=== PATIENT | male | born 1965 | race Caucasian/White ===

== ENCOUNTER 2020-09-19 15:31 | Inpatient (IN) | payer OTHER, MEDICAID ==
[~2020-09-19] VITALS: Ht 162.6 cm; Wt 72.6 kg
[~2020-09-19 15:31] MED LIST: ACET-1182 PO; ACET-9531 PO; ALBU0.0912 INH; ATOR20TA40 PO; AZIT250T11 PO; DOCU-299 PO; HEPA-133 IV; HEPA500056 IV; Heparin Per Pharmacy MC; LAS20I IVP; LISI20TA29 PO; LISI20TA30 PO; METO25TA PO; ONDA2SOL45 IM/IVP; POTA10TE30 PO
[2020-09-19 15:59] VITALS: BP 109/78
--- NOTE | 2020-09-19 16:32 | NUR ---
pt ambulated to bed 10.
--- NOTE | 2020-09-19 16:43 | NUR ---
PT TAKEN TO CT VIA W/C
--- NOTE | 2020-09-19 16:46 | NUR ---
55 Y/O M BIB SELF FROM HOME, C/O MOTTLED SKIN, DIARRHEA, N&V FOR ONE WEEK. PT OVERALL STATES HE IS NOT FEELING WELL AND HAVING FREQUENT DIZZY SPELLS. DENIES SYNCOPE. DENIES LOC, FALL OR HEAD INJURY. DENIES ANY PAIN AT THIS TIME. PMH: DEAF, PACEMAKER, HEART BLOCK NKA
--- NOTE | 2020-09-19 16:53 | NUR ---
PT RETURNED TO BEDSIDE FROM CT VIA W/C
--- NOTE | 2020-09-19 16:53 | NUR ---
UA COLLECTED AND GIVEN TO TOMBSTONE POLISHER
--- NOTE | 2020-09-19 16:55 | NUR ---
PT PLACED ON AEROSPACE MANAGER AND PULSE OX
--- NOTE | 2020-09-19 16:57 | NUR ---
QUARTER FOLDER BEDSIDE
--- NOTE | 2020-09-19 17:06 | NUR ---
RT BEDSIDE COLLECTING ABG BLOODWORK
[2020-09-19 17:31] LABS: BASOPHILS % (AUTO) 0.4 % (0.0-2.0); EOSINOPHILS # (AUTO) 0.1 K/uL (0-0.4); EOSINOPHILS % (AUTO) 1.5 % (0.0-4.0); HEMATOCRIT 24.6 % (36-52); HEMOGLOBIN 12.7 g/dL (12.0-18.0); LYMPHOCYTES # (AUTO) 1.8 K/uL (2.0-11.5); LYMPHOCYTES % (AUTO) 23.6 % (20.5-51.1); MEAN CORPUSCULAR HEMOGLOBIN 54 pg (27-31); MEAN CORPUSCULAR HGB CONC 52 g/dL (33-37); MEAN CORPUSCULAR VOLUME 103.8 fL (80-94); MONOCYTES # (AUTO) 0.6 K/uL (0.8-1.0); MONOCYTES % (AUTO) 7.8 % (1.7-9.3); NEUTROPHILS % (AUTO) 66.7 % (42.2-75.2); PLATELET COUNT (AUTO) 275 K/uL (140-450); RED BLOOD CELL COUNT(AUTO) 2.37 MIL/uL (4.20-6.10); RED CELL DISTRIBUTION WIDTH 12.1 % (11.6-13.7); WHITE BLOOD COUNT (AUTO) 7.5 K/uL (4.8-10.8)
--- NOTE | 2020-09-19 17:36 | NUR ---
Pt resting, visible equal rise and fall of chest, VSS, will continue to monitor. EMT provided warm blanket at this time.
[2020-09-19 17:47] LABS: BILIRUBIN,URINE NEGATIVE (NEGATIVE); BLOOD, URINE TRACE-L (NEGATIVE); COLOR,URINE YELLOW (YELLOW); LEUKOCYTE ESTERASE ,URINE NEGATIVE (NEGATIVE); NITRITE, URINE NEGATIVE (NEGATIVE); PH,URINE 5.5 (5.0-9.0); UGLUCOSE NEGATIVE (NEGATIVE)
[2020-09-19 17:51] LABS: ALBUMIN 4.1 g/dL (3.4-5.0); ANION GAP 11.5 (8-16); ASPARTATE AMINOTRANSFERASE 33 U/L (15-37); CARBON DIOXIDE 28.3 mmol/L (21-32); CHLORIDE 103 mmol/L (98-107); GFR ARICAN-AMERICAN 99 mL/min (>90); GLUCOSE 101 mg/dL (74-106); POTASSIUM 3.8 mmol/L (3.5-5.1); SODIUM SERUM 139 mmol/L (136-145); TOTAL BILIRUBIN 1.3 mg/dL (0.0-1.0); UREA NITROGEN, BLOOD 11 mg/dL (7-18)
[2020-09-19 17:53] LABS: APPEARANCE,URINE CLEAR (CLEAR)
[2020-09-19 17:54] LABS: ACETAMINOPHEN < 0.5 ug/ml (10-30); SALICYLATE < 2.8 mg/dL (2.8-20.0)
[2020-09-19 18:07] LABS: BARBITURATE, URINE NEGATIVE ng/ml (NEG <=200); BENZODIAZEPINE, URINE NEGATIVE ng/mL (NEG <=200); COCAINE, URINE NEGATIVE ng/mL (NEG <=300)
[2020-09-19 18:08] LABS: CANNABINOID, URINE POSITIVE ng/mL (NEG <=50); OPIATE, URINE NEGATIVE ng/mL (NEG <=2000); PHENCYCLIDINE SCREEN,URINE NEGATIVE ng/mL (NEG <=25)
--- NOTE | 2020-09-19 18:53 | NUR ---
[facility] crayon molding machine operator services used for pending pt admission. [place] #[id number]. Dr. Keyes at pt bedside.
--- NOTE | 2020-09-19 18:56 | NUR ---
Pt ambulated to restroom with a steady gait.
--- NOTE | 2020-09-19 19:03 | NUR ---
Spoke with dietary for vegetarian diet request per pt and Dr. Keyes.
--- NOTE | 2020-09-19 19:14 | NUR ---
REPORT GIVEN TO DONTRELL PRIETO. TRANSFER OF CARE GIVEN
--- NOTE | 2020-09-19 19:22 | NUR ---
Report received from Greta JON for continuity of care.
--- NOTE | 2020-09-19 20:59 | NUR ---
PATIENT AMBUALTED TO BED 11.
[2020-09-19] MEDS ORDERED: SODIUM PHOS / POTASSIUM PHOS 1 PKT PDR PO PRN (22:20)
[2020-09-19] MEDS ORDERED: HYDROcodone/APAP 5/325 MG 1 TAB TAB PO PRN (22:20)
[2020-09-19] MEDS ORDERED: MAG SULF 2000 MG/WATER PREMIX 50 ML IV PRN (22:20)
[2020-09-19] MEDS ORDERED: ALBUTEROL HFA MDI 90 MCG/ACTUATION 8 GM INH PRN (22:20)
[2020-09-19] MEDS ORDERED: MORPHINE SULFATE 2 MG/ML SYR IVP PRN (22:20)
[2020-09-19] MEDS ORDERED: ACETAMINOPHEN 325 MG TAB PO PRN (22:20)
[2020-09-19] MEDS: NACL 0.9% 1,000 ML IV SCH (22:20)
[2020-09-19] MEDS ORDERED: DOCUSATE SODIUM 100 MG GELCAP PO PRN (22:20)
[2020-09-19] MEDS ORDERED: ONDANSETRON 4 MG/2 ML VIAL IM/IVP PRN (22:20)
[2020-09-19] MEDS ORDERED: POTASSIUM CHLORIDE 40 MEQ, LIDOCAINE MPF 1% 25 MG in NACL 0.9% 250 ML IV PRN (22:20)
[2020-09-19] MEDS ORDERED: MECLIZINE 25 MG TAB PO PRN (22:35)
--- NOTE | 2020-09-20 | NUR ---
PATIENT IN BED, AWAKE, ABLE TO VERBALIZE NEEDS. VS WNL. DENIES HAVING ANY PAIN AND DISCOMFORT. WILL CONTINUE TO MONITOR.
[2020-09-20 01:12] LABS: MAGNESIUM 2.1 mg/dL (1.8-2.4)
--- NOTE | 2020-09-20 04:15 | NUR ---
PT SLEEPING. REFUSED VS AT THIS TIME.
--- NOTE | 2020-09-20 06:10 | NUR ---
COLLECTED AM LAB ORDERS. PT APPEARS COMFORTABLE AND IN NO DISTRESS.
[2020-09-20] MEDS ORDERED: LOSA25TA43 PO (06:55)
[2020-09-20 07:05] LABS: BASOPHILS # (AUTO) 0.1 K/uL (0.00-0.22); BASOPHILS % (AUTO) 0.7 % (0.0-2.0); EOSINOPHILS # (AUTO) 0.1 K/uL (0-0.4); EOSINOPHILS % (AUTO) 1.3 % (0.0-4.0); HEMOGLOBIN 11.3 g/dL (12.0-18.0); LYMPHOCYTES # (AUTO) 2.5 K/uL (2.0-11.5); LYMPHOCYTES % (AUTO) 25.7 % (20.5-51.1); MEAN CORPUSCULAR HEMOGLOBIN 61 pg (27-31); MEAN CORPUSCULAR HGB CONC 60 g/dL (33-37); MEAN CORPUSCULAR VOLUME 102.4 fL (80-94); MONOCYTES # (AUTO) 0.8 K/uL (0.8-1.0); MONOCYTES % (AUTO) 7.9 % (1.7-9.3); NEUTROPHILS # (AUTO) 6.3 K/uL (1.8-7.7); NEUTROPHILS % (AUTO) 64.4 % (42.2-75.2); PLATELET COUNT (AUTO) 225 K/uL (140-450); RED BLOOD CELL COUNT(AUTO) 1.85 MIL/uL (4.20-6.10); RED CELL DISTRIBUTION WIDTH 12.1 % (11.6-13.7); WHITE BLOOD COUNT (AUTO) 9.7 K/uL (4.8-10.8)
--- NOTE | 2020-09-20 07:13 | NUR ---
REPORT GIVEN TO TORRES JON FOR CONTINUITY OF CARE.
--- NOTE | 2020-09-20 07:23 | NUR ---
Patient resting at this time in a position of comfort, placed on bedside rn cardiac cath.
[2020-09-20 07:39] LABS: ANION GAP 10.6 (8-16); CARBON DIOXIDE 26.1 mmol/L (21-32); CREATININE 0.9 mg/dL (0.6-1.3); POTASSIUM 4.7 mmol/L (3.5-5.1)
--- NOTE | 2020-09-20 07:42 | NUR ---
RECEIVED REPORT FROM ER NURSE PT IS AAOX4 ON ROOM AIR, AMBULATORY ON CARDIAC DIET IV ON THE LEFT ARM GAUGE 20 SKIN INTACT, COVID 19 VACCINE DONE PT IS FULLY VACCINATED WITH [employer] VACCINE. CHEST XRAY DONE WITH LEFT SIDED PACEMAKER/DEFIB IN PLACE NEGATIVE FOR CARDIOPULMONARY DISEASE AND HEAD CT DONE NEGATIVE BLEEDING MIDLINE SHIFT OR MASS EFFECT, PT IS HARD OF HEARING.
--- NOTE | 2020-09-20 07:43 | NUR ---
Patient will be admitted to care of Dr. Veronica. Admited to Med/Surg. Will go to room 111A. Belongings list completed. Report to Tanya.
--- NOTE | 2020-09-20 08:00 | NUR ---
RECEIVED PT FROM ED. CALL LIGHT IS WITHIN REACH. SAFETY PRECAUTIONS IN PLACE. WILL CONTINUE PLAN OF CARE.
--- NOTE | 2020-09-20 08:13 | NUR ---
MRSA TEST WAS TAKEN TO LAB.
[2020-09-20] MEDS: METOPROLOL 25 MG TAB PO SCH ×2 (08:53→20:40)
--- NOTE | 2020-09-20 08:55 | NUR ---
ADMINISTERED SCHEDULED MEDICATIONS LISINOPRIL AND METROPOLOL. BP WAS 121/85 OH:79. PT REFUSED HEPARIN DUE TO HIM NOT TAKING IT AT HOME. SAFETY PRECAUTIONS IN PLACE PER PROTOCOL. PT IS EATING BREAKFAST AND APPEARS STABLE. CALL LIGHT IS IN REACH. WILL CONTINUE TO MONITOR.
[2020-09-20] MEDS ORDERED: lisinopriL 20 MG TAB PO SCH (09:00)
--- NOTE | 2020-09-20 09:01 | NUR ---
PT PUT ON FALL PREVENTIONS. YELLOW GOWN , YELLOW NON SKID SOCKS, YELLOW FALL PRECAUTIONS BRACELET, AND FIBERGLASS INSULATION INSTALLER SIGN OUTSIDE OF ROOM. CALL LIGHT IS WITHIN REACH. SAFETY PRECAUTIONS IN PLACE. WILL CONTINUE TO MONITOR.
[2020-09-20 09:57] VITALS: BP 124/83
--- NOTE | 2020-09-20 10:44 | NUR ---
PATIENT HAS BEEN SCREENED AND CATEGORIZED MODERATE NUTRITION RISK. PATIENT WILL BE SEEN WITHIN 3-5 DAYS OF ADMISSION. 09/22/20-09/24/20 OC BARCLAY MS, RDN
--- NOTE | 2020-09-20 12:32 | NUR ---
CALLED DR KATHY ALFARO FOR A CONSULT, IS OFF FOR TODAY LEFT MESSAGE TO LYLY. Addendum: 09/20/20 at 1236 by Tanya Suh RN DR MARLYN NICHOLS
--- NOTE | 2020-09-20 14:00 | NUR ---
MADE ROUNDS PT IS RESTING AND NO DISTRESS NOTED.
--- NOTE | 2020-09-20 15:00 | NUR ---
PATIENTS MOM CALLED AND AND GAVE UPDATES ON PATIENT CONDITION.
[2020-09-20 16:00] VITALS: BP 106/68
[2020-09-20] MEDS ORDERED: MECLIZINE 25 MG TAB PO PRN (17:05)
--- NOTE | 2020-09-20 17:37 | NUR ---
US VENOUS BILATERAL LOWER EXTREMITIES ON GOING AT THIS TIME. WILL CONTINUE TO MONITOR.
--- NOTE | 2020-09-20 18:08 | NUR ---
EDUCATED PT ON LAB RESULTS A DTHE IMPORTANCE OF TAKING HEPARIN. PT AGREED TO BE COMPLIANT WITH MEDICATION REGIMEN AND PLAN OF CARE. CALL LIGHT IS WITHIN REACH. WILL CONTINUE TO MONITOR.
--- NOTE | 2020-09-20 19:26 | NUR ---
ENDORSED TO NIGHT NURSE FOR CONTINUITY OF CARE. PT IS STABLE.
--- NOTE | 2020-09-20 19:27 | NUR ---
RECD. RESTING IN BED, AWAKE, A/OX4. HARD OF HEARING, USES PAPER FOR COMMUNICATION WITH THE NURSE. RESPIRATION EVEN AND UNLABORED. IV OF NS AT 40 ML/HR INFUSING, LEFT FOREARM G20. AMBULATORY TO THE BR. NOTED RASHES ON BILATERAL UPPER EXTREMITIES AND LOWER EXTREMITIES AND SOME AT THE BACK. MEDICATIONS FOR THE NIGHT DISCUSSED WITH PATIENT, VERBALIZED UNDERSTANDING. DENIES PAIN 0/10.
[2020-09-20 20:00] VITALS: BP 117/79
[2020-09-20] MEDS: ATORVASTATIN 20 MG TAB PO SCH (20:40)
--- NOTE | 2020-09-20 20:40 | NUR ---
SCHEDULED MEDICATIONS GIVEN FOR THE NIGHT. REFUSED COZAAR, STATED THAT HE GARCIA NOT TAKE IT AT HOME BUT TAKE ALL OTHER MEDICATIONS. EXPLAINED IT'S IMPORTANCE, STILL REFUSED.
[2020-09-20] MEDS: LOSARTAN 25 MG TAB PO SCH (20:41)
--- NOTE | 2020-09-20 22:00 | NUR ---
AMBULATED TO THE SINK AND DID HIS ORAL CARE.
[2020-09-20] MEDS: NACL 0.9% 1,000 ML IV SCH (22:20)
[2020-09-21] VITALS: BP 108/75
--- NOTE | 2020-09-21 | NUR ---
SLEEPING COMFORTABLY IN BED.
--- NOTE | 2020-09-21 02:00 | NUR ---
COMFORTABLE LAYING SUPINE IN BED, STILL ASLEEP.
--- NOTE | 2020-09-21 03:25 | NUR ---
Patient's Plan of Care was discussed and reviewed with KID CLUB ATTENDANT: NELSON CRUZ
--- NOTE | 2020-09-21 04:00 | NUR ---
RESPIRATION EVEN AND UNLABORED. STILL SLEEPING. NO RESPIRATORY DISTRESS NOTED.
[2020-09-21 06:57] LABS: CHOL/HDL RATIO 4.3 (1-4.5)
[2020-09-21 07:01] LABS: ALBUMIN 3.6 g/dL (3.4-5.0); ANION GAP 11.3 (8-16); CARBON DIOXIDE 25.8 mmol/L (21-32); CREATININE 0.9 mg/dL (0.6-1.3); POTASSIUM 4.1 mmol/L (3.5-5.1); THYROID STIMULATING HORMONE 1.65 uIU/mL (0.34-3.74); TOTAL BILIRUBIN 1.5 mg/dL (0.0-1.0)
[2020-09-21 07:12] LABS: RED BLOOD CELL COUNT(AUTO) 1.46 MIL/uL (4.20-6.10); WHITE BLOOD COUNT (AUTO) 14.1 K/uL (4.8-10.8)
[2020-09-21 07:13] LABS: HEMOGLOBIN 10.4 g/dL (12.0-18.0)
[2020-09-21 07:14] LABS: MEAN CORPUSCULAR HEMOGLOBIN 71 pg (27-31); MEAN CORPUSCULAR VOLUME 108.2 fL (80-94)
[2020-09-21 07:15] LABS: PLATELET COUNT (AUTO) 265 K/uL (140-450); RED CELL DISTRIBUTION WIDTH 12.1 % (11.6-13.7)
--- NOTE | 2020-09-21 07:25 | NUR ---
RECEIVED CRITICAL RESULT FROM LAB PATIENT HEMATOCRIT LEVEL 15.8 DR CLINE AWARE
[2020-09-21 07:27] LABS: HEMATOCRIT 15.8 % (36-52)
--- NOTE | 2020-09-21 07:29 | NUR ---
CONDITION REMAIN STABLE. ENDORSED TO AM SHIFT NURSE FOR CONTINUITY OF CARE.
--- NOTE | 2020-09-21 07:30 | NUR ---
RECEIVED REPORT FROM NIGHT INSURANCE ASSOCIATE PT IS SLEEPING ON ROOM AIR, SKIN INTACT, IV INTACT ON LEFT ARM WITH SODIUM CHLORIDE 0.95 AT 40 MLS/HR PT IS HARD OF HEARING, WITH PACEMAKER AND HEART BLOCK, SAFETY MEASURES IN PLACE AND CALLL LIGHT WITHIN REACH. WILL CONTINUE TO MONITOR.
[2020-09-21 07:51] LABS: BASOPHILS # (AUTO) 0.1 K/uL (0.00-0.22); BASOPHILS % (AUTO) 0.4 % (0.0-2.0); EOSINOPHILS # (AUTO) 0.2 K/uL (0-0.4); EOSINOPHILS % (AUTO) 1.2 % (0.0-4.0); LYMPHOCYTES # (AUTO) 3.4 K/uL (2.0-11.5); LYMPHOCYTES % (AUTO) 25.7 % (20.5-51.1); MONOCYTES # (AUTO) 0.8 K/uL (0.8-1.0); NEUTROPHILS # (AUTO) 8.7 K/uL (1.8-7.7); NEUTROPHILS % (AUTO) 66.7 % (42.2-75.2)
[2020-09-21 07:54] LABS: MEAN CORPUSCULAR HGB CONC 66 g/dL (33-37)
[2020-09-21 08:00] VITALS: BP 103/59
[2020-09-21] MEDS: METOPROLOL 25 MG TAB PO SCH ×2 (08:50→21:22)
[2020-09-21] MEDS: LOSARTAN 25 MG TAB PO SCH ×2 (08:50→21:21)
--- NOTE | 2020-09-21 08:54 | NUR ---
MEDICATION DUE GIVEN CHECK VITAL SIGNS PRIOR TO MEDICATION BP 103/59 MS 83 NO DISTRESS NOTED ABLE TO AMBULATE AND DENIES ANY PAIN. WILL CONTINUE TO MONITOR.
--- NOTE | 2020-09-21 10:00 | NUR ---
MADE ROUND PT WANT TO TAKE SHOWER, NO DISTRESS NOTED PT SEEN BY DR CLINE.
--- NOTE | 2020-09-21 12:00 | NUR ---
PT EATING WELL AND RESTING.
--- NOTE | 2020-09-21 14:00 | NUR ---
MADE ROUNDS PT IS SLEEPING AND NO DISTRESS NOTED.
[2020-09-21 16:00] VITALS: BP 119/74
--- NOTE | 2020-09-21 17:25 | NUR ---
CHANGED IV FLUIDS SODIUM CHLORIDE 0.95 AT 40 MLS/HR INFUSING WELL.
--- NOTE | 2020-09-21 18:35 | NUR ---
ECHOCARDIOGRAM LIMITED ON GOING AT THIS TIME.
--- NOTE | 2020-09-21 19:23 | NUR ---
ENDORSED TO NIGHT NURSE FOR CONTINUITY OF CARE. PT IS STABLE
--- NOTE | 2020-09-21 19:24 | NUR ---
RECD. RESTING IN BED, AWAKE, A/OX4. RESPIRATION EVEN AND UNLABORED. WATCHING TV. HARD OF HEARING, USES PEN AND PAPER TO COMMUNICATE WITH NURSES. INDEPENDENT WITH HIS ADLS. STILL WITH RASHES IN BILATERAL UPPER AND LOWER EXTREMITIES AND BACK. DENIES ANY ITCHINESS. MEDICATIONS FOR THE NIGHT DISCUSSED WITH PATIENT. VERBALIZED UNDERSTANDING. DENIES PAIN 0/10.
[2020-09-21] MEDS: ATORVASTATIN 20 MG TAB PO SCH (21:21)
--- NOTE | 2020-09-21 21:23 | NUR ---
SCHEDULED MEDICATIONS GIVEN. TEACHINGS GIVEN ON THE IMPORTANCE OF DIET, PREVENTION OF INFECTION AND GOO SKIN CARE. VERBALIZED UNDERSTANDING.
[2020-09-21] MEDS: NACL 0.9% 1,000 ML IV SCH (22:20)
[2020-09-22] VITALS: BP 123/63
--- NOTE | 2020-09-22 | NUR ---
SLEEPING COMFORTABLY IN BED.
--- NOTE | 2020-09-22 02:00 | NUR ---
ON HIS LEFT SIDE, STILL SLEEPING COMFORTABLY IN BED.
--- NOTE | 2020-09-22 04:00 | NUR ---
COMFORTABLE IN BED. RESPIRATION EVEN AND UNLABORED. VS STABLE. NO COMPLAINT OF PAIN 0/10.
[2020-09-22] MEDS: NACL 0.9% 1,000 ML IV SCH (05:30)
--- NOTE | 2020-09-22 06:30 | NUR ---
CONDITION REMAIN STABLE. WILL ENDORSE TO AM SHIFT NURSE FOR CONTINUITY OF CARE.
[2020-09-22 07:00] LABS: ANION GAP 15.1 (8-16); CARBON DIOXIDE 25.4 mmol/L (21-32); POTASSIUM 4.5 mmol/L (3.5-5.1)
--- NOTE | 2020-09-22 07:01 | NUR ---
Patient's Plan of Care was discussed and reviewed with WATER AND FIRE TECHNICIAN: NELSON CRUZ
--- NOTE | 2020-09-22 07:30 | NUR ---
RECEIVED BEDSIDE REPORT FROM SCREW MACHINE SET UP OPERATOR TOOL NURSE. PT IS SLEEPING AND SNORING. PT IS IN RA AND STABLE. IV SITE ON LEFT ARM IS INTACT. WILL CONTINUE TO MONITOR.
[2020-09-22 08:00] VITALS: BP 110/77
[2020-09-22 08:24] LABS: BASOPHILS # (AUTO) 0.1 K/uL (0.00-0.22); BASOPHILS % (AUTO) 0.4 % (0.0-2.0); EOSINOPHILS # (AUTO) 0.2 K/uL (0-0.4); EOSINOPHILS % (AUTO) 1.5 % (0.0-4.0); HEMOGLOBIN 9.7 g/dL (12.0-18.0); LYMPHOCYTES # (AUTO) 2.7 K/uL (2.0-11.5); LYMPHOCYTES % (AUTO) 22.5 % (20.5-51.1); MEAN CORPUSCULAR HEMOGLOBIN 71 pg (27-31); MEAN CORPUSCULAR HGB CONC 68 g/dL (33-37); MEAN CORPUSCULAR VOLUME 104.4 fL (80-94); MONOCYTES # (AUTO) 0.6 K/uL (0.8-1.0); MONOCYTES % (AUTO) 5.3 % (1.7-9.3); NEUTROPHILS # (AUTO) 8.3 K/uL (1.8-7.7); NEUTROPHILS % (AUTO) 70.3 % (42.2-75.2); PLATELET COUNT (AUTO) 246 K/uL (140-450); RED BLOOD CELL COUNT(AUTO) 1.36 MIL/uL (4.20-6.10); WHITE BLOOD COUNT (AUTO) 11.8 K/uL (4.8-10.8)
[2020-09-22 09:06] LABS: FERRITIN 276 ng/mL (30-400)
[2020-09-22 09:33] LABS: HEMATOCRIT 14.2 % (36-52)
--- NOTE | 2020-09-22 09:55 | NUR ---
RECEIVED CRITICAL LAB FOR HCT BEEN 14.2 FROM LABORATORY. VERBALLY MENTION IT TO DR. CLINE AND HE SAID IT WAS OK AND TRENDING DOWN.
--- NOTE | 2020-09-22 09:57 | NUR ---
PT IS AWAKE AND IN SEMI FOWLERS POSITION IN BED. PT IS WATCHING TELEVISION. HE IS IN RA AND STABLE. WILL CONTINUE TO MONITOR.
[2020-09-22] MEDS: LOSARTAN 25 MG TAB PO SCH (10:11)
[2020-09-22] MEDS: METOPROLOL 25 MG TAB PO SCH (10:26)
--- NOTE | 2020-09-22 11:50 | NUR ---
PT IS IN SEMI FOWLERS POSITION IN BED WATCHING THE TELEVISION. PT IS STABLE AND IN RA. WILL CONTINUE TO MONITOR.
--- NOTE | 2020-09-22 12:45 | NUR ---
PT SITTING IN BED EATING LUNCH AND WATCHING TELEVISION. PT IS IN RA AND BREATHING NORMALLY. PT IS STABLE. WILL CONTINUE TO MONITOR.
[2020-09-22 13:26] LABS: BASOPHILS # (AUTO) 0.1 K/uL (0.00-0.22); BASOPHILS % (AUTO) 0.5 % (0.0-2.0); EOSINOPHILS # (AUTO) 0.1 K/uL (0-0.4); HEMOGLOBIN 10.5 g/dL (12.0-18.0); LYMPHOCYTES # (AUTO) 2.6 K/uL (2.0-11.5); LYMPHOCYTES % (AUTO) 22.2 % (20.5-51.1); MEAN CORPUSCULAR HEMOGLOBIN 73 pg (27-31); MEAN CORPUSCULAR HGB CONC 70 g/dL (33-37); MEAN CORPUSCULAR VOLUME 104.6 fL (80-94); MONOCYTES # (AUTO) 0.6 K/uL (0.8-1.0); MONOCYTES % (AUTO) 5.3 % (1.7-9.3); NEUTROPHILS # (AUTO) 8.3 K/uL (1.8-7.7); PLATELET COUNT (AUTO) 253 K/uL (140-450); RED BLOOD CELL COUNT(AUTO) 1.44 MIL/uL (4.20-6.10); RED CELL DISTRIBUTION WIDTH 12.1 % (11.6-13.7); WHITE BLOOD COUNT (AUTO) 11.7 K/uL (4.8-10.8)
[2020-09-22 13:33] LABS: HEMATOCRIT 15.1 % (36-52)
[2020-09-22] MEDS ORDERED: ATOR40TA PO (14:17)
[2020-09-22] MEDS ORDERED: ASPI-1822 PO (14:17)
--- NOTE | 2020-09-22 15:08 | NUR ---
PT IS SLEEPING IN BED. CHEST IS RISING AND FALLING AND IN RA. PT IS STABLE. WILL CONTINUE TO MONITOR.
[2020-09-22 16:00] VITALS: BP 115/78
--- NOTE | 2020-09-22 16:30 | NUR ---
PT IS SITTING IN BED. ALERT AND ORIENTED X4. PT IS STABLE IN RA. WILL CONTINUE TO MONITOR.
--- NOTE | 2020-09-22 17:45 | NUR ---
PT WAS WHEELED OUT FOR DISCHARGE. MOTHER WAS WAITING FOR HIM IN CAR. PT WAS ALERT AND ORIENTED X4. PT WAS STABLE.
[2020-09-22] MEDS ORDERED: ATORVASTATIN 20 MG TAB PO SCH (21:00)
[2020-09-23 09:06] LABS: HEPATITIS B CORE AB TOTAL Negative (Negative); HEPATITIS B SURFACE ANTIBODY Reactive (.); HEPATITIS B SURFACE ANTIGEN Negative (Negative)
[2020-09-23 12:07] LABS: ANTI-NUCLEAR ANTIBODY,DIRECT Negative (Negative)
[2020-09-23 15:07] LABS: ANTI DOUBLE STRANDED DNA AB 1 IU/mL (0-9)
[2020-09-25 15:35] LABS: ANTITHROMBIN ACTIVITY 89 % (75 - 135)
== END 2020-09-22 17:50 | disposition home or self-care (01) | DRG 74 ==
LOC: MED 15:31 → MTU 21:22
PROVIDERS: ADMIT Hospitalist; ATTEND Hospitalist
DX: G90.9 Disorder of the autonomic nervous system, unspecified (principal); I42.9 Cardiomyopathy, unspecified; A08.4 Viral intestinal infection, unspecified; D53.9 Nutritional anemia, unspecified; F12.10 Cannabis abuse, uncomplicated; I11.0 Hypertensive heart disease with heart failure; I50.9 Heart failure, unspecified; R23.1 Pallor; Z79.899 Other long term (current) drug therapy; Z95.0 Presence of cardiac pacemaker; Z71.51 Drug abuse counseling and surveillance of drug abuser
CPT/HCPCS: 36415; 36600; 70450; 71045; 80048; 80053; 80305; 81003; 82550; 82595; 82607; 82728; 82746; 82803; 83540; 83605; 83735; 84100; 84443; 84484; 85025; 85045; 85220; 85300; 85305; 85379; 85384; 85610; 85613; 85651; 85730; 86038; 86140; 86147; 86160; 86430; 86702; 86704; 86706; 86803; 87040; 87081; 87340; 93005; 93308; 93880; 93970; 96360; 96361; 99285; G0480; G0482; J1644

== ENCOUNTER 2021-02-28 13:13 | Emergency (ER) | payer OTHER, MEDICAID ==
[~2021-02-28] VITALS: Ht 162.6 cm; Wt 70.3 kg
[~2021-02-28 13:13] MED LIST changes: -ACET-1182 PO; -ACET-9531 PO; -ALBU0.0912 INH; +ASPI-1822 PO; -ATOR20TA40 PO; +ATOR40TA PO; -AZIT250T11 PO; -DOCU-299 PO; -HEPA-133 IV; -HEPA500056 IV; -Heparin Per Pharmacy MC; -LAS20I IVP; -LISI20TA29 PO; -LISI20TA30 PO; +LOSA25TA43 PO; -ONDA2SOL45 IM/IVP; -POTA10TE30 PO
[2021-02-28 13:25] VITALS: BP 107/79
--- NOTE | 2021-02-28 14:00 | NUR ---
NO NURSING INTERVENTION NEEDED. SEEN & TRETED BY FARRAH GUZMAN.
[2021-02-28] MEDS ORDERED: ACET-10509 PO (15:03)
[2021-02-28] MEDS ORDERED: IBUP-2213 PO (15:22)
[2021-02-28 16:03] VITALS: BP 107/79
== END 2021-02-28 16:03 | disposition home or self-care (01) ==
LOC: MED 13:13
DX: S86.811A Strain of other muscle(s) and tendon(s) at lower leg level, right leg, initial encounter (principal); I10 Essential (primary) hypertension; Z95.0 Presence of cardiac pacemaker; Z79.899 Other long term (current) drug therapy; Z79.82 Long term (current) use of aspirin; X58.XXXA Exposure to other specified factors, initial encounter; Y93.89 Activity, other specified; Y92.89 Other specified places as the place of occurrence of the external cause; Y99.8 Other external cause status
CPT/HCPCS: 73562; 99283